=== PATIENT | female | born 1985 | race Caucasian/White ===

== ENCOUNTER 2020-10-25 12:24 | Outpatient (CLI) | payer OTHER ==
[~2020-10-25 12:24] MED LIST: DEXA4TAB66 PO; DOCU-144 PO; OMEG-76 PO; ONDA4TAB7 PO; VITA1TAB67 PO; [UNRECOGNIZED DRUG - CODE] PO
== END 2020-10-25 23:59 | disposition home or self-care (01) ==
LOC: LAB 12:24
PROVIDERS: ATTEND Obstetrics & Gynecology
DX: Z02.9 Encounter for administrative examinations, unspecified (principal)